=== PATIENT | female | born 1930 | race Caucasian/White ===

== ENCOUNTER 2017-03-14 10:33 | Emergency (ER) | payer OTHER ==
[~2017-03-14] VITALS: Ht 154.9 cm; Wt 54.0 kg
[~2017-03-14 10:33] MED LIST: ASPIR 8181 M1 PO; FOSAMAX70 MG PO; LIPITOR20 MG PO; LOSARTAN POTASS25 MG PO; PERCOCET 5/31 TABLET PO; SINEMET 25-1001 EACH PO; XANAX0.25 MG PO
[2017-03-14 11:17] LABS: ADD MIUA? YES; BILIRUBIN NEGATIVE; BLOOD SMALL; COLOR YELLOW ((YELLOW)); GLUCOSE (STRIP) NEGATIVE; KETONES NEGATIVE; LEUKOCYTES SMALL; NITRITE NEGATIVE; PROTEIN (STRIP) NEGATIVE; SPECIFIC GRAVITY 1.011 (1.000-1.030); UROBILINOGEN 0.2 MG/DL (0.2-1.0)
[2017-03-14 11:18] LABS: EOSINOPHIL (%) 1.6 % (0-5); EOSINOPHIL COUNT 0.1 K/uL (0-0.3); HEMATOCRIT 42.9 % (36.0-46.0); IMMATURE GRANULOCYTE (%) 0.3 % (0.0-0.7); INSTRUMENT ABS NEUTROPHIL CT 4.8 K/uL; MCH 29.4 PG (29.0-34.0); MCHC 33.1 G/DL (30.0-36.0); MCV 88.8 FL (83-99); MEAN PLAT.VOLUME 9.8 uM^3 (9.5-12.4); MONOCYTE (%) 7.9 % (3-12); MONOCYTE COUNT 0.5 K/uL (0-0.8); NEUTROPHIL (%) 74.5 % (45-76); NEUTROPHIL COUNT 4.8 K/uL (1.8-6.4); PLATELET COUNT 190 K/uL (156-360); RBC DIS.WIDTH-CV 12.4 % (11.8-14.6); RBC DIS.WIDTH-SD 40.6 % (39-53); RED BLOOD COUNT 4.83 M/uL (3.80-5.20); WHITE BLOOD COUNT 6.4 K/uL (4.1-10.2)
[2017-03-14 11:30] LABS: BACTERIA 2+ /HPF; EPITHELIAL CELLS RARE /HPF; MUCUS TRACE /LPF; UCUL ADDED? YES
[2017-03-14 11:32] LABS: CHLORIDE 106 mEq/L (99-109); POTASSIUM 3.8 mEq/L (3.7-5.4); SODIUM 143 mEq/L (136-147)
[2017-03-14 11:34] LABS: GLUCOSE 130 mg/dL (70-99)
[2017-03-14 11:35] LABS: ANION GAP 11 MEQ/L (2-14)
[2017-03-14 11:36] LABS: TOTAL BILIRUBIN 0.5 mg/dL (0.0-1.0)
[2017-03-14 11:37] LABS: ALKALINE PHOSPHATASE 83 IU/L (3-129)
[2017-03-14 11:38] LABS: GFR ESTIMATE (CALCULATED) > 59 mL/min/
[2017-03-14 11:39] LABS: UREA NITROGEN (BUN) 17 mg/dL (9-23)
[2017-03-14 11:41] LABS: CREATINE KINASE 69 IU/L (1-294); TOTAL CK 69 IU/L (1-294)
[2017-03-14 11:42] LABS: TROP-I INTERPRETATION NEGATIVE; TROPONIN-I < 0.01 ng/mL (0.0-0.30)
[2017-03-14 11:46] LABS: CK-MB 2.5 ng/mL (0.0-4.9)
[2017-03-14] MEDS ORDERED: LEVAQUIN500 MG PO (13:26)
[2017-03-14 14:03] VITALS: BP 134/95
== END 2017-03-14 14:14 | disposition home or self-care (01) ==
LOC: EME 10:33
PROVIDERS: Emergency Medicine
DX: N39.0 Urinary tract infection, site not specified (principal); F02.80 Dementia in other diseases classified elsewhere, unspecified severity, without behavioral disturbance, psychotic disturbance, mood disturbance, and anxiety; G20 Parkinson's disease; I10 Essential (primary) hypertension; E78.5 Hyperlipidemia, unspecified; Z79.82 Long term (current) use of aspirin
CPT/HCPCS: 70450; 71010; 80053; 81003; 82550; 82553; 84484; 85025; 87086; 93005; 99281; 99284